=== PATIENT | female | born 1970 | race Caucasian/White ===

== ENCOUNTER 2022-04-12 09:22 | Outpatient (CLI) | payer OTHER | END 2022-04-12 09:23 | disposition home or self-care (01) | LOC: CT 09:22 | PROVIDERS: ATTEND Thoracic Surgery (Cardiothoracic Vascular Surgery) | DX: I70.221 Atherosclerosis of native arteries of extremities with rest pain, right leg (principal) | CPT/HCPCS: 75635 ==